=== PATIENT | male | born 1995 | race Caucasian/White ===

== ENCOUNTER 2022-04-27 07:51 | Day surgery (SDC) | payer OTHER ==
[2022-04-26 11:34] VITALS: BMI 34.9
[2022-04-27] MEDS ORDERED: Oxymetazoline HCl 0.05% (30 ML BOT) ONE (08:18)
[2022-04-27] MEDS ORDERED: Lidocaine 1% (PF) 30 ML VIAL ONE (10:25)
[2022-04-27] MEDS ORDERED: Bacitracin Zinc Ointment 30 gm TUBE ONE (10:25)
[2022-04-27] MEDS ORDERED: EPINEPHrine 1 MG/ML AMP ONE (10:25)
[2022-04-27] MEDS ORDERED: SUGAMMADEX SODIUM 200 MG/2 ML VIAL ONE (10:35)
[2022-04-27] MEDS ORDERED: fentaNYL Citrate/PF 100 MCG/2 ML SYRINGE ONE ×2 (10:35→10:36)
[2022-04-27] MEDS ORDERED: Ondansetron PF 4 MG/2 ML Vial ONE (10:42)
[2022-04-27] MEDS ORDERED: Rocuronium Bromide 10 MG/ML (10ML VIAL) ONE (10:42)
[2022-04-27] MEDS ORDERED: PROPOFOL 200 MG/20 ML VIAL ONE (10:42)
[2022-04-27] MEDS ORDERED: Dexamethasone 20 MG/5 ML VIAL ONE (10:42)
[2022-04-27] MEDS ORDERED: Fentanyl 100 MCG/2 ML VIAL ONE (12:20)
== END 2022-04-27 14:45 | disposition home or self-care (01) ==
LOC: SDC 07:51
PROVIDERS: ATTEND Otolaryngology Plastic Surgery within the Head & Neck
PROC: 09TV8ZZ Resection of Left Ethmoid Sinus, Via Natural or Artificial Opening Endoscopic (ICD-10-PCS; principal; 2022-04-27)
PROC: 099Q8ZZ Drainage of Right Maxillary Sinus, Via Natural or Artificial Opening Endoscopic (ICD-10-PCS; principal; 2022-04-27)
PROC: 099R8ZZ Drainage of Left Maxillary Sinus, Via Natural or Artificial Opening Endoscopic (ICD-10-PCS; principal; 2022-04-27)
PROC: 09TU8ZZ Resection of Right Ethmoid Sinus, Via Natural or Artificial Opening Endoscopic (ICD-10-PCS; principal; 2022-04-27)
PROC: 099X8ZZ Drainage of Left Sphenoid Sinus, Via Natural or Artificial Opening Endoscopic (ICD-10-PCS; principal; 2022-04-27)
PROC: 09SM0ZZ Reposition Nasal Septum, Open Approach (ICD-10-PCS; principal; 2022-04-27)
PROC: 099W8ZZ Drainage of Right Sphenoid Sinus, Via Natural or Artificial Opening Endoscopic (ICD-10-PCS; principal; 2022-04-27)
PROC: 095L0ZZ Destruction of Nasal Turbinate, Open Approach (ICD-10-PCS; principal; 2022-04-27)
DX: J32.9 Chronic sinusitis, unspecified (principal); J33.9 Nasal polyp, unspecified; J34.2 Deviated nasal septum; J34.3 Hypertrophy of nasal turbinates; J34.89 Other specified disorders of nose and nasal sinuses; J30.9 Allergic rhinitis, unspecified; E03.9 Hypothyroidism, unspecified; F17.290 Nicotine dependence, other tobacco product, uncomplicated; E66.9 Obesity, unspecified; Z68.35 Body mass index [BMI] 35.0-35.9, adult; Z86.16 Personal history of COVID-19; Z79.890 Hormone replacement therapy; Z79.899 Other long term (current) drug therapy
CPT/HCPCS: J0171; J1100; J2001; J2405; J2704; J3010; J7620